=== PATIENT | female | born 1975 | race Two or more races ===

== ENCOUNTER 2018-12-17 16:08 | Emergency (ER) | payer OTHER ==
[~2018-12-17] VITALS: Ht 154.9 cm; Wt 60.6 kg
[2018-12-17 17:14] LABS: BASOPHILS # (AUTO) 0.02 x10^3/uL (0-0.1); BASOPHILS % (AUTO) 0 % (0-1); EOSINOPHILS # (AUTO) 0.03 x10^3/uL (0-0.4); EOSINOPHILS % (AUTO) 1 % (1-7); LYMPHOCYTES % (AUTO) 26 % (22-44); MD NO; MEAN CORPUSCULAR HGB CONC 34.8 g/dL (32.4-35.8); MEAN CORPUSCULAR VOLUME 91.9 fL (80-100); MEAN PLATELET VOLUME 7.2 fL (7.4-10.4); MONOCYTES # (AUTO) 0.49 x10^3/uL (0.2-0.8); MONOCYTES % (AUTO) 8 % (2-9); NEUTROPHILS # (AUTO) 4.15 x10^3/uL (1.8-6.8); NEUTROPHILS % (AUTO) 66 % (42-75); PLATELET COUNT 390 x10^3/uL (130-400); RED BLOOD COUNT 4.65 x10^6/uL (3.82-5.3); RED CELL DISTRIBUTION WIDTH 12.7 % (9.6-15.2)
[2018-12-17 17:22] LABS: ALBUMIN 3.8 g/dL (3.4-5.0); ANION GAP 5 mmol/L (5-15); CALCIUM 8.7 mg/dL (8.5-10.1); CHLORIDE 109 mmol/L (98-107); CREATININE 0.84 mg/dL (0.55-1.02)
--- NOTE | 2018-12-17 18:04 | NUR ---
PT to 36 from lobby
--- NOTE | 2018-12-17 18:14 | NUR ---
PT PRESENTING TO ER FOR LEFT SIDE HEARING LOSS, CHURCH, AND FACIAL NUMBNESS. RECENT MRI SHOWING BRAIN TUMOR. PT FEELS SYMPTOMS ARE WORSENING. NOTED PT HAVING VERY JERKY BODY MOVEMENTS, ALSO WORSENING RECENTLY. NO NEUROLOGIST AT THIS TIME. CONNECTED TO MONITORS, VSS. LABS BACK, AWAITING CT AND MD ASSESSMENT WITH ADDITIONAL ORDERS. FAMILY AT BEDSIDE. CALL LIGHT WITHIN REACH.
--- NOTE | 2018-12-17 18:27 | NUR ---
PT TAKEN TO CT
--- NOTE | 2018-12-17 18:37 | NUR ---
MD TO BEDSIDE FOR ASSESSMENT. AWAITING FURTHER ORDERS AT [facility] TIME
--- NOTE | 2018-12-17 18:47 | NUR ---
WAITING TO HEAR BACK FROM NEURO SURG AT THIS TIME FOR FURTHER ORDERS
[2018-12-17] MEDS ORDERED: SODIUM CHLORIDE FLUSH 10ML SYR IVF ONE (19:00)
[2018-12-17] MEDS ORDERED: DEXAMETHASONE 4 MG/ML, 1ML IVPush ONE (19:00)
[2018-12-17] MEDS ORDERED: DEXAMETHASONE 4 MG/ML, 1ML ONE (19:06)
[2018-12-17] MEDS ORDERED: SODIUM CHLORIDE 0.9% 1,000 ML IV ONE (19:11)
--- NOTE | 2018-12-17 19:14 | NUR ---
IV PLACED, PT MEDICATED PER DEC. HOSPITALIST AT BEDSIDE FOR ADMIT ASSESSMENT
[2018-12-17 19:21] LABS: ALANINE AMINOTRANSFERASE 11 U/L (12-78); ALBUMIN 3.8 g/dL (3.4-5.0); BILIRUBIN, DIRECT 0.2 mg/dL (0.1-0.2); INTERNATIONAL NORMALIZED RATIO 1.02 (0.93-1.1); PROTHROMBIN TIME 10.7 Seconds (9.6-11.5)
[2018-12-17 19:25] LABS: ALKALINE PHOSPHATASE 73 U/L (45-117); BILIRUBIN,INDIRECT 0.4 mg/dL (0.0-2.0); BILIRUBIN,TOTAL 0.6 mg/dL (0.2-1.0); TOTAL PROTEIN 7.7 g/dL (6.4-8.2)
[2018-12-17] MEDS ORDERED: SODIUM CHLORIDE FLUSH 10ML SYR IVF PRN (19:30)
[2018-12-17] MEDS ORDERED: SODIUM CHLORIDE 0.9% 1,000 ML IV SCH (20:14)
--- NOTE | 2018-12-17 20:17 | NUR ---
PT STATES PAIN IMPROVED NOW 4/10 CHURCH PAIN. PT A&OX4, ALL NEURO INTACT AT THIS TIME. WILL CONTINUE TO MONITOR
[2018-12-17] MEDS ORDERED: hydrALAzine 20 MG/ML, 1ML IVPush PRN (20:30)
[2018-12-17] MEDS ORDERED: ONDANSETRON 2MG/ML, 2ML IVPush PRN (20:30)
[2018-12-17] MEDS ORDERED: FAMOTIDINE 20 MG/2 ML IVPush SCH (21:00)
[2018-12-17] MEDS ORDERED: FAMOTIDINE 20 MG/2 ML ONE (21:31)
--- NOTE | 2018-12-17 21:40 | NUR ---
PT RESTING IN BED WITH AT BEDSIDE. A&OX4, FARM ASSISTANT EQUAL AND STRONG BILATERALLY. NEURO ASSESSMENT SAME
[2018-12-17 22:52] VITALS: BP 97/53
--- NOTE | 2018-12-17 23:17 | NUR ---
REPORT GIVEN TO EFRAIN KEARNEY
--- NOTE | 2018-12-17 23:58 | NUR ---
PT AMBULATED TO BATHROOM WITH STEADY GAIT
--- NOTE | 2018-12-18 00:02 | NUR ---
REPORT GIVEN TO CHRISTEL RODRÍGUEZ AT [facility]
[2018-12-18] MEDS ORDERED: DEXAMETHASONE 4 MG/ML, 1ML IV SCH (01:00)
== END 2018-12-18 01:15 | disposition short-term general hospital (02) ==
LOC: ED 19:10 → EDIP 19:11 → UNDOADMIN 19:11 → ED 12-18 01:15
DX: G91.1 Obstructive hydrocephalus (principal); C72.59 Malignant neoplasm of other cranial nerves; C79.89 Secondary malignant neoplasm of other specified sites
CPT/HCPCS: 36415; 70450; 80048; 80076; 82040; 84703; 85025; 85610; 85730; 96361; 96374; 96375; 99291; 99292; J1100; J3490; J7030

== ENCOUNTER → 2019-09-04 | Outpatient (CLI) | payer MEDICAID | END | disposition home or self-care (01) | LOC: ROC 07:51 | PROVIDERS: ATTEND Radiology Radiation Oncology | DX: Z09 Encounter for follow-up examination after completed treatment for conditions other than malignant neoplasm (principal); Z86.018 Personal history of other benign neoplasm; F10.20 Alcohol dependence, uncomplicated | CPT/HCPCS: 99214; G0463 ==

== ENCOUNTER → 2019-09-30 | Outpatient (CLI) | payer MEDICAID ==
[~2019-09-30] MED LIST: GADOTERATE 7.5 MMOL/15 ML SYR ONE
== END | disposition home or self-care (01) ==
LOC: CFH 09:32
PROVIDERS: ATTEND Radiology Radiation Oncology
DX: D33.3 Benign neoplasm of cranial nerves (principal); G31.9 Degenerative disease of nervous system, unspecified
CPT/HCPCS: 70553; A9575

== ENCOUNTER 2020-04-13 08:43 | Outpatient (CLI) | payer MEDICAID | END 2020-04-13 23:59 | disposition home or self-care (01) | LOC: ROC 08:43 | PROVIDERS: ATTEND Radiology Radiation Oncology | DX: D33.3 Benign neoplasm of cranial nerves (principal) | CPT/HCPCS: 99213; G0463 ==

== ENCOUNTER 2020-07-08 07:43 | Outpatient (CLI) | payer MEDICAID | END 2020-07-08 23:59 | disposition home or self-care (01) | LOC: ROC 07:43 | PROVIDERS: ATTEND Radiology Radiation Oncology | DX: D33.3 Benign neoplasm of cranial nerves (principal) | CPT/HCPCS: 99213; G0463 ==

== ENCOUNTER → 2020-12-16 | Outpatient (CLI) | payer MEDICAID | END | disposition home or self-care (01) | LOC: ROC 07:04 | PROVIDERS: ATTEND Radiology Radiation Oncology | DX: Z08 Encounter for follow-up examination after completed treatment for malignant neoplasm (principal); D33.3 Benign neoplasm of cranial nerves | CPT/HCPCS: 99213; G0463 ==